=== PATIENT | male | born 1995 | race Caucasian/White ===

== ENCOUNTER 2020-10-10 18:50 | Inpatient (IN) ==
[2020-10-10] MEDS ORDERED: Metoprolol XL (24 HR) Succ 50 MG TAB.ER.24H PO ONE (22:47)
[2020-10-10 22:58] LABS: Basophils % 0.4 %; Eosinophils # 0.2 K/mcL (0.0-0.6); Eosinophils % 2.2 %; Hematocrit 41.7 % (37.5-50.1); Hemoglobin 14.2 g/dL (12.9-16.9); Immature Granulocytes % 0.3 % (0-4); Lymphocytes # 2.2 K/mcL (0.6-4.6); Lymphocytes % 20.3 %; Mean Corpuscular HGB Conc 34.1 g/dL (31.6-35.5); Mean Corpuscular Hemoglobin 29.6 pg (28.0-33.3); Mean Corpuscular Volume 87.1 fL (83.0-100.0); Mean Platelet Volume 8.6 fL (9.4-12.4); Monocytes # 0.9 K/mcL (0.0-1.3); Monocytes % 8.3 %; Neutrophils # 7.3 K/mcL (1.6-8.9); Platelet Count 316 K/mcL (140-400); Red Blood Count 4.79 M/mcL (4.19-5.50); Red Cell Distribution Width 12.3 % (11.5-14.5); Segmented Neutrophils % 68.5 %; White Blood Count 10.7 K/mcL (4.3-11.1)
[2020-10-10 23:17] LABS: BUN/Creatinine Ratio 11 (6-26); Blood Urea Nitrogen 11 mg/dL (6-20); Calcium 9.8 mg/dL (8.6-10.3); Carbon Dioxide 29 mEq/L (23-29); Chloride 102 mEq/L (98-107); Glucose 106 mg/dL (70-105); Osmolality,Calculated 288 (280-300); Potassium 4.1 mEq/L (3.5-5.1); Sodium 139 mEq/L (136-145); eGFR For African Americans > 60 (> 60); eGFR For Non-African Americans > 60 (> 60)
[2020-10-10] MEDS ORDERED: *HR* OxyCODONE/APAP 5/325 TABLET PO ONE (23:23)
[2020-10-10] MEDS ORDERED: levETIRAcetam 250 MG TABLET PO ONE (23:30)
[2020-10-11] MEDS ORDERED: Ondansetron 4 MG/2 ML VIAL IVP PRN (01:14)
[2020-10-11] MEDS ORDERED: Naloxone 0.4 MG/ML INJ IVP PRN (01:14)
[2020-10-11] MEDS: Melatonin 3 MG TABLET PO SCH ×2 (02:36→20:58)
[2020-10-11] MEDS: Metoprolol XL (24 HR) Succ 50 MG TAB.ER.24H PO SCH ×2 (09:22→20:58)
[2020-10-11] MEDS: levETIRAcetam 250 MG TABLET PO SCH ×2 (09:22→20:58)
[2020-10-11] MEDS: Famotidine 20 MG TABLET PO SCH ×2 (09:28→16:14)
[2020-10-12 01:28] LABS: Basophils # 0.1 K/mcL (0.0-0.2); Basophils % 0.7 %; Eosinophils # 0.2 K/mcL (0.0-0.6); Eosinophils % 2.9 %; Hematocrit 39.3 % (37.5-50.1); Hemoglobin 13.2 g/dL (12.9-16.9); Immature Granulocytes % 0.3 % (0-4); Lymphocytes # 1.8 K/mcL (0.6-4.6); Lymphocytes % 26.4 %; Mean Corpuscular HGB Conc 33.6 g/dL (31.6-35.5); Mean Corpuscular Volume 86.4 fL (83.0-100.0); Mean Platelet Volume 8.6 fL (9.4-12.4); Monocytes # 0.8 K/mcL (0.0-1.3); Monocytes % 10.9 %; Neutrophils # 4.1 K/mcL (1.6-8.9); Platelet Count 261 K/mcL (140-400); Red Blood Count 4.55 M/mcL (4.19-5.50); Red Cell Distribution Width 12.1 % (11.5-14.5); Segmented Neutrophils % 58.8 %
[2020-10-12 01:44] LABS: BUN/Creatinine Ratio 12 (6-26); Blood Urea Nitrogen 9 mg/dL (6-20); Calcium 9.1 mg/dL (8.6-10.3); Carbon Dioxide 27 mEq/L (23-29); Chloride 101 mEq/L (98-107); Glucose 123 mg/dL (70-105); Osmolality,Calculated 282 (280-300); Potassium 3.8 mEq/L (3.5-5.1); Sodium 136 mEq/L (136-145); eGFR For African Americans > 60 (> 60); eGFR For Non-African Americans > 60 (> 60)
[2020-10-12] MEDS: Famotidine 20 MG TABLET PO SCH ×2 (07:50→17:29)
[2020-10-12] MEDS: Metoprolol XL (24 HR) Succ 50 MG TAB.ER.24H PO SCH (07:50)
[2020-10-12] MEDS: levETIRAcetam 250 MG TABLET PO SCH (08:32)
[2020-10-12 19:02] LABS: Adenovirus Not Detected (Not Detect); Bordetella Pertussis Not Detected (Not Detect); Chlamydophila pneumoniae Not Detected (Not Detect); Coronavirus 229E Not Detected (Not Detect); Coronavirus HKU1 Not Detected (Not Detect); Coronavirus NL63 Not Detected (Not Detect); Coronavirus OC43 Not Detected (Not Detect); Human Metapneumovirus Not Detected (Not Detect); Human Rhinovirus/Enterovirus Not Detected (Not Detect); Influenza A Subtype 2009 H1 Not Detected (Not Detect); Influenza B Not Detected (Not Detect); Mycoplasma pneumoniae Not Detected (Not Detect); Parainfluenza Virus 1 Not Detected (Not Detect); Parainfluenza Virus 2 Not Detected (Not Detect); Parainfluenza Virus 3 Not Detected (Not Detect); Parainfluenza Virus 4 Not Detected (Not Detect); Respiratory Syncytial Virus Not Detected (Not Detect); SARS-CoV-2 Not Detected (Not Detect)
[2020-10-12 19:57] VITALS: BP 136/83
== END 2020-10-12 20:27 ==
LOC: EMEROOARM 18:50 → 3NENU 18:50 → SUATTDRO 23:39 → 3NENU 10-11 00:12
PROVIDERS: ADMIT Internal Medicine; ATTEND Internal Medicine

== ENCOUNTER 2022-04-06 02:21 | Observation (INO) ==
[2022-04-06] MEDS ORDERED: Iopamidol - 370 500 ML MLS IVP ONE (02:33)
[2022-04-06 02:58] LABS: Hematocrit 46.7 % (37.5-50.1); Hemoglobin 15.6 g/dL (12.9-16.9); Mean Corpuscular HGB Conc 33.4 g/dL (31.6-35.5); Mean Corpuscular Hemoglobin 28.9 pg (28.0-33.3); Mean Corpuscular Volume 86.6 fL (83.0-100.0); Mean Platelet Volume 8.7 fL (9.4-12.4); Platelet Count 339 K/mcL (140-400); Red Blood Count 5.39 M/mcL (4.19-5.50); Red Cell Distribution Width 12.5 % (11.5-14.5)
[2022-04-06 03:16] LABS: BUN/Creatinine Ratio 7 (6-26); Blood Urea Nitrogen 7 mg/dL (6-20); Carbon Dioxide 30 mEq/L (23-29); Chloride 100 mEq/L (98-107); Glucose 148 mg/dL (70-105); Osmolality,Calculated 289 (280-300); Potassium 4.1 mEq/L (3.5-5.1); Sodium 139 mEq/L (136-145); eGFR For African Americans > 60 (> 60); eGFR For Non-African Americans > 60 (> 60)
[2022-04-06 03:58] LABS: Bilirubin,Urine Negative (Negative); Blood,Urine Negative (Negative); Clarity,Urine Clear (Clear); Color,Urine Light-Yellow (Yellow); Glucose,Urine (UA) Normal (Normal); Ketones,Urine Negative (Negative); Leukocyte Esterase,Urine Negative (Negative); Nitrite,Urine Negative (Negative); Protein,Urine Negative (Neg-Trace); Specific Gravity,Urine > 1.030 (1.010-1.025); Urobilinogen,Urine Normal (Normal)
[2022-04-06] MEDS ORDERED: Perflutren Lipid Microsphere 1.3 ML in 0.9 % Sodium Chloride 8.7 ML IVP PRN (04:41)
[2022-04-06] MEDS ORDERED: *HR* LORazepam 2 MG/ML VIAL IVP ONE (04:55)
[2022-04-06] MEDS ORDERED: Naloxone 0.4 MG/ML INJ IVP PRN (04:57)
[2022-04-06] MEDS ORDERED: Ondansetron 4 MG/2 ML VIAL IVP PRN (04:57)
[2022-04-06] MEDS: Acetaminophen 325 MG TABLET PO PRN ×2 (06:18→13:03)
[2022-04-06] MEDS: levETIRAcetam 250 MG TABLET PO SCH (08:31)
[2022-04-06] MEDS: Famotidine 20 MG TABLET PO SCH ×2 (08:31→20:57)
[2022-04-06] MEDS: Aspirin Enteric Coated 81 MG Tablet PO SCH (08:31)
[2022-04-06] MEDS ORDERED: Famotidine 20 MG TABLET PO SCH (09:00)
[2022-04-06] MEDS ORDERED: levETIRAcetam 250 MG TABLET PO SCH (21:00)
[2022-04-07] MEDS ORDERED: Famotidine 20 MG TABLET PO SCH (09:00)
[2022-04-07] MEDS ORDERED: amLODIPine 5 MG TABLET PO SCH (09:00)
[2022-04-07] MEDS ORDERED: Metoprolol XL (24 HR) Succ 50 MG TAB.ER.24H PO SCH (09:00)
[2022-04-07] MEDS: Aspirin Enteric Coated 81 MG Tablet PO SCH (09:38)
[2022-04-07] MEDS: Famotidine 20 MG TABLET PO SCH (09:38)
[2022-04-07] MEDS: levETIRAcetam 250 MG TABLET PO SCH (09:39)
[2022-04-07] MEDS ORDERED: SULFUR HEXAFLUORIDE MICROSPHR 25 MG VIAL IVP ONE (10:41)
[2022-04-07 11:26] VITALS: PULSE 93
[2022-04-07 14:25] VITALS: BP 157/79; TEMP 97.9; O2SAT 97
[2022-04-07] MEDS ORDERED: Melatonin 3 MG TABLET PO SCH (21:00)
[2022-04-07] MEDS ORDERED: Loratadine 10 MG TABLET PO SCH (21:00)
== END 2022-04-07 17:07 | disposition home or self-care (01) ==
LOC: EMEROOARM 02:21 → 3BNU 02:21 → SUATTDRO 04:08 → 3BNU 05:18
PROVIDERS: ADMIT Internal Medicine; ATTEND Family Medicine